=== PATIENT | male | born 1985 | race Caucasian/White ===

== ENCOUNTER 2019-10-24 06:22 | Inpatient (IN) ==
[2019-10-24] MEDS ORDERED: MAGNESIUM HYDROXIDE SUSP 30 ML UDC PO PRN (12:27)
[2019-10-24] MEDS ORDERED: ACETAMINOPHEN 325 MG TAB PO PRN (12:27)
[2019-10-24] MEDS ORDERED: SODIUM CHLORIDE 0.65% NA SOLN 45 ML (OCEAN) PRN (12:27)
[2019-10-24] MEDS ORDERED: ALUMINUM/MAGNESIUM SUSP 30 ML UDC PO PRN (12:27)
[2019-10-24] MEDS ORDERED: BISMUTH SUBSALICYLATE PER ML OMNICELL CHARGE PO PRN (12:27)
[2019-10-24] MEDS ORDERED: clonazePAM 0.5 MG TAB PO PRN (12:27)
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
[2019-10-24] MEDS ORDERED: LEVOTHYROXINE SODIUM 50 MCG TABLET PO SCH (14:00)
[2019-10-24] MEDS ORDERED: Nursing to Pharmacy Communication ONE (14:49)
[2019-10-24] MEDS: LEVOTHYROXINE SODIUM 50 MCG TABLET PO SCH (15:49)
[2019-10-24] MEDS: METFORMIN HCL 500 MG TAB PO SCH (17:39)
[2019-10-24] MEDS: TOPIRAMATE 50 MG TAB PO SCH (20:35)
[2019-10-24] MEDS: TRAZODONE HCL 50 MG TAB PO SCH (20:35)
[2019-10-24] MEDS: ATORVASTATIN 20 MG TAB PO SCH (20:35)
[2019-10-24] MEDS: CHLORPROMAZINE HCL 100 MG TABLET PO SCH (20:35)
[2019-10-24] MEDS: PROPRANOLOL HCL 10 MG TAB PO SCH (20:35)
[2019-10-25] MEDS: LEVOTHYROXINE SODIUM 50 MCG TABLET PO SCH (08:26)
[2019-10-25] MEDS: LEVOTHYROXINE SODIUM 75 MCG TABLET PO SCH (08:47)
[2019-10-25] MEDS: ASPIRIN 325 MG ECTAB PO SCH (08:53)
[2019-10-25] MEDS: PROPRANOLOL HCL 10 MG TAB PO SCH ×2 (08:53→21:36)
[2019-10-25] MEDS: METFORMIN HCL 500 MG TAB PO SCH ×2 (08:53→17:36)
[2019-10-25] MEDS: PALIPERIDONE 3 MG TABCR PO SCH (08:54)
[2019-10-25] MEDS: TOPIRAMATE 50 MG TAB PO SCH ×2 (08:54→21:36)
[2019-10-25] MEDS: SERTRALINE HCL 100 MG TABLET PO SCH (08:54)
--- NOTE | 2019-10-25 09:29 | Psychiatric Progress Note ---
Date of Service October 25, 2019 Impression / Recommendations (1) Schizoaffective disorder, bipolar type: 10/24 -patient presents with depressive symptoms, trigger unclear. He denies recent medication changes. He is a limited historian and would be helpful to expand the database with collateral information from his mother, BCM, and outpatient psychiatrist. -For now continue reported home medications: Paliperidone 3 mg every morning, sertraline 100 mg every morning, chlorpromazine 200 mg at bedtime, and trazodone 50 mg at bedtime. -Try to determine if he has had cholesterol panel and fasting glucose in the past year prior to ordering here. -Continue metformin 1000 mg twice daily with meals; diabetes is not listed on his records, so this may have been added to mitigate antipsychotic-induced weight gain. -Family meeting if indicated. 10/25 - Continue current medication regimen - attempting to coordinate with outpatient psychiatric offices to confirm medications, diagnoses, and recent progress - Will attempt to confirm if patient has a patient case manager, obtain collateral information if available - Pt reporting improvement in mood overall, but does indicate poor sleep last evening - Continue to encourage participation in group and recreational programming (2) Anxiety: 10/24 -continue SSRI, hydroxyzine 25 mg twice daily, and clonazepam 0.5 mg 3 times daily as needed. Per PDMP, he is filling #90 tabs monthly, last prescription filled 09/15/[address] Bandar Hernandez in [place], [place]. (3) Intellectual disability: 10/24 -IQ unknown; coordinate with outpatient BCM tomorrow. (4) Seizure disorder: Continue home dose of topiramate 50 mg twice daily. (5) Hypertension: Continue home dose of propanolol. (6) Hypothyroidism: Continue home dose of levothyroxine. TSH is normal. (7) Hyperlipidemia: Continue home dose of atorvastatin. Clarify when last lipid profile was done. Inventory Assets Strengths: Stable housing, willing for treatment Needs: Increase supports, socialization Risk Factors Assessment Male: Yes : Yes Do You Have Access To A Gun?: No Health Problems: Yes Mental Health Diagnoses: Yes Substance Use Disorders: No Previous Attempt: Yes Previous Psychiatric Hospitalization: Yes Hopelessness: No Smoker: Yes Protective Factors Assessment : No Responsible for Young Children: No Employed: No Stable Relationships: No Supportive Family: Yes Good Rapport with Provider: Yes Interval History Identifying Information MAHAMED HUNTER is a 34-year-old M who currently lives alone in [place], has a history of intellectual disability, 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 Chief Complaint "Um, I'm ok. Pretty stable." Review of Systems Notes Constitutional: reports restless sleep last evening Cardiovascular: denied Respiratory: denied Gastrointestinal: denied Neurological: denied Psychiatric: denies symptoms other than stated above Total of at least 10 systems reviewed, pertinent positives as above and in HPI. Sleep Information Total Hours of Sleep: 6 Meal Information Percent Meal Consumed - Breakfast: 90 Percent Meal Consumed - Lunch: 100 Percent Meal Consumed - Dinner: 95 Subjective Subjective Patient was seen & assessed and interval progress reviewed with treatment team. Staff report the patient was admitted with reports of worsening depression. He did endorse anxiety related to being in the hospital, but reported improvement in condition last evening. Attempts were made by staff to coordinate care with mother, who informed staff that the patient typically has an ED diversion plan. Pt was seen today to assess progress since admission. He was awoken from sleep, but admits he had already been up and eating breakfast earlier this morning. He states that he feels his mood has been "pretty stable" since his admission, and does feel as thought his symptoms have been "getting better." Pt denies overt SI since admission, but endorses ongoing feelings of hopelessness "here and there." He remains a poor historian in that he is not able to recall who is outpatient psychiatric prescriber may be and remains unsure about involvement of a patient case manager. Pt remains agreeable with staff obtaining collateral information as available. He was encouraged to continue to attend group and recreational programming. He denies other needs from staff today. Physical Exam Psychiatric Orientation: alert, oriented x 3 and cooperative Apperance: appropriately dressed, + disheveled (hair unkempt, awoken from sleep) and appeared stated age Eye Contact: good eye contact Motor Behavior: no abnormal motor movements (observed while laying in bed) Speech: normal rate/rhythm/volume of speech Affect: + blunted affect Mood: no depressed mood ("Pretty stable" and "getting better") Thought Process: goal directed thought process, clear/coherent thought process and + concrete thought process Thought Content: reality based without delusions and + hopelessness ("here and there") Suicidal Thoughts: denies suicidal thoughts (denies active SI since admission, but ongoing intermittent hopelessness) and denies suicidal intent Homicidal Thoughts: denies homicidal thoughts Hallucinations: no auditory hallucinations and no visual hallucinations Cognition: attention grossly intact and language grossly intact Estimated Intelligence: + below average estimated intelligence Insight: + limited insight Judgement: + fair judgement Vital Signs (Past 24 Hours) Last Vital Signs Temp 36.6 C 10/25/19 07:01 Pulse 89 10/25/19 07:02 Resp 18 10/25/19 07:01 BP 108/70 10/25/19 07:02 Results & Data Current Inpatient Medications Current Inpatient Medications: Current Inpatient Medications Acetaminophen (Tylenol) 650 mg PO Q4H PRN PRN Reason: Headache or Minor Fever Stop: 11/23/19 12:26 Al Hydrox/Mg Hydrox/Simethicone (Maalox) 30 ml PO Q4H PRN PRN Reason: GI Upset Stop: 11/23/19 12:26 Aspirin (Ecotrin) 325 mg PO DAILY LEE Stop: 11/24/19 08:59 Last Admin: 10/25/19 08:53 Dose: 325 mg Documented by: Atorvastatin Calcium (Lipitor) 20 mg PO HS LEE Stop: 11/23/19 21:59 Last Admin: 10/24/19 20:35 Dose: 20 mg Documented by: Bismuth Subsalicylate (Kaopectate) 15 ml PO PRN PRN PRN Reason: Loose Stool Stop: 11/23/19 12:26 Chlorpromazine HCl (Thorazine) 200 mg PO HS LEE Stop: 11/23/19 21:59 Last Admin: 10/24/19 20:35 Dose: 200 mg Documented by: Clonazepam (Klonopin) 0.5 mg PO TID PRN PRN Reason: Anxiety Stop: 11/23/19 12:26 Hydroxyzine HCl (Vistaril) 50 mg PO HSZ PRN PRN Reason: Insomnia Stop: 11/23/19 12:26 Last Admin: 10/24/19 22:33 Dose: 50 mg Documented by: Hydroxyzine HCl (Vistaril) 25 mg PO Q4H PRN PRN Reason: Anxiety Stop: 02/11/20 12:26 Hydroxyzine HCl (Vistaril) 25 mg PO BID [facility] Stop: 11/23/19 20:59 Last Admin: 10/25/19 08:54 Dose: 25 mg Documented by: Levothyroxine Sodium (Synthroid) 75 mcg PO [id number]@0800 [facility] Stop: 11/24/19 07:59 Last Admin: 10/25/19 08:47 Dose: Not Given Documented by: Levothyroxine Sodium (Synthroid) 50 mcg PO SuMoWeFr@0800 [facility] Stop: 11/23/19 13:59 Last Admin: 10/25/19 08:26 Dose: 50 mcg Documented by: Magnesium Hydroxide (Milk Of Magnesia) 30 ml PO DAILY PRN PRN Reason: Constipation Stop: 11/23/19 12:26 Metformin HCl (Glucophage) 1,000 mg PO BIDM [facility] Stop: 11/23/19 17:44 Last Admin: 10/25/19 08:53 Dose: 1,000 mg Documented by: Paliperidone (Invega) 3 mg PO QAM [facility] Stop: 11/24/19 08:59 Last Admin: 10/25/19 08:54 Dose: 3 mg Documented by: Propranolol HCl (Inderal) 10 mg PO BID [facility] Stop: 11/23/19 20:59 Last Admin: 10/25/19 08:53 Dose: 10 mg Documented by: Sertraline HCl (Zoloft) 100 mg PO DAILY [facility] Stop: 11/24/19 08:59 Last Admin: 10/25/19 08:54 Dose: 100 mg Documented by: Sodium Chloride (Bleckley Nasal) 1 - 2 sprays NA PRN PRN PRN Reason: Nasal Dryness/Congestion Stop: 11/23/19 12:26 Topiramate (Topamax) 50 mg PO BID [facility] Stop: 11/23/19 20:59 Last Admin: 10/25/19 08:54 Dose: 50 mg Documented by: Trazodone HCl (Desyrel) 50 mg PO HS [facility] Stop: 11/23/19 21:59 Last Admin: 10/24/19 20:35 Dose: 50 mg Documented by: Mental Health & Subst Abuse Tx Therapist Name of Therapist: Eliza Klein Head Of Digital Name of Head Of Digital: Quinton Gaines CM at [facility] Post Discharge Appointments Primary Care Physician Name Of Family Doctor: Dr. Gant
[2019-10-25] MEDS: CHLORPROMAZINE HCL 100 MG TABLET PO SCH (21:36)
[2019-10-25] MEDS: ATORVASTATIN 20 MG TAB PO SCH (21:36)
[2019-10-25] MEDS: TRAZODONE HCL 50 MG TAB PO SCH (21:36)
[2019-10-26] MEDS: LEVOTHYROXINE SODIUM 75 MCG TABLET PO SCH (08:42)
[2019-10-26] MEDS: PALIPERIDONE 3 MG TABCR PO SCH (08:43)
[2019-10-26] MEDS: METFORMIN HCL 500 MG TAB PO SCH ×2 (08:43→18:23)
[2019-10-26] MEDS: PROPRANOLOL HCL 10 MG TAB PO SCH ×2 (08:43→21:34)
[2019-10-26] MEDS: ASPIRIN 325 MG ECTAB PO SCH (08:43)
[2019-10-26] MEDS: SERTRALINE HCL 100 MG TABLET PO SCH (08:44)
[2019-10-26] MEDS: TOPIRAMATE 50 MG TAB PO SCH ×2 (08:44→21:35)
--- NOTE | 2019-10-26 11:19 | Psychiatric Progress Note ---
Date of Service October 26, 2019 Impression / Recommendations (1) Schizoaffective disorder, bipolar type: 10/24 -patient presents with depressive symptoms, trigger unclear. He denies recent medication changes. He is a limited historian and would be helpful to expand the database with collateral information from his mother, B[facility], and outpatient psychiatrist. -For now continue reported home medications: Paliperidone 3 mg every morning, sertraline 100 mg every morning, chlorpromazine 200 mg at bedtime, and trazodone 50 mg at bedtime. -Try to determine if he has had cholesterol panel and fasting glucose in the past year prior to ordering here. -Continue metformin 1000 mg twice daily with meals; diabetes is not listed on his records, so this may have been added to mitigate antipsychotic-induced weight gain. -Family meeting if indicated. 10/25 - Continue current medication regimen - attempting to coordinate with outpatient psychiatric offices to confirm medications, diagnoses, and recent progress - Will attempt to confirm if patient has a showcase maker, obtain collateral information if available - Pt reporting improvement in mood overall, but does indicate poor sleep last evening - Continue to encourage participation in group and recreational programming 10/26 - Continue current treatment plan, patient reporting improvement in mood and resolution of SI - Collateral information obtained from director of the [facility]; stating they are meeting with patient several times a week and are available to meet with him on day of discharge - [facility] did indicate patient had fasting blood work completed on 09/08 with no reported concerns - Consider discharge as early as tomorrow - mother notified of plans (2) Anxiety: 10/24 -continue SSRI, hydroxyzine 25 mg twice daily, and clonazepam 0.5 mg 3 times daily as needed. Per PDMP, he is filling #90 tabs monthly, last prescription filled 09/15/[address] Bandar Hernandez in [place], [place]. (3) Intellectual disability: 10/24 -IQ unknown; coordinate with outpatient BCM tomorrow. (4) Seizure disorder: Continue home dose of topiramate 50 mg twice daily. (5) Hypertension: Continue home dose of propanolol. (6) Hypothyroidism: Continue home dose of levothyroxine. TSH is normal. (7) Hyperlipidemia: Continue home dose of atorvastatin. Clarify when last lipid profile was done. Inventory Assets Strengths: Stable housing, willing for treatment Needs: Increase supports, socialization Risk Factors Assessment Male: Yes : Yes Do You Have Access To A Gun?: No Health Problems: Yes Mental Health Diagnoses: Yes Substance Use Disorders: No Previous Attempt: Yes Previous Psychiatric Hospitalization: Yes Hopelessness: No Smoker: Yes Protective Factors Assessment : No Responsible for Young Children: No Employed: No Stable Relationships: No Supportive Family: Yes Good Rapport with Provider: Yes Interval History Identifying Information MAHAMED HUNTER is a 34-year-old M who currently lives alone in [place], has a history of intellectual disability, 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 Chief Complaint "Ok, I'm alright." Review of Systems Notes Constitutional: reports fatigue, but not necessarily poor sleep Cardiovascular: denied Respiratory: denied Gastrointestinal: denied Neurological: denied Psychiatric: denies symptoms other than stated above Total of at least 10 systems reviewed, pertinent positives as above and in HPI. Sleep Information Total Hours of Sleep: 5.75 Meal Information Percent Meal Consumed - Breakfast: 100 Percent Meal Consumed - Lunch: 100 Percent Meal Consumed - Dinner: 100 Subjective Subjective Patient was seen & assessed and interval progress reviewed with nursing and social work. Staff reports the patient continues to demonstrate improvement in mood. He rated his mood an 8/10 and "fine" last evening. He did verbalize to staff that he feels his medications are working. Patient was seen today to assess progress since admission. Patient did provide verbal consent for Allegra Frias PA-C to observe today's encounter. Patient states that he is "okay. I am all right." He does admit to believing that his mood has improved over the course of his hospitalization. Patient rates his present mood a 7/10, and admits that his mood was more a 23/10 at time of admission. Patient does confirm resolution of suicidal ideation, and feels he will better be able to manage his psychiatric symptoms on an outpatient basis at this time. We did review that patient has an ED diversion plan in place, and that this will be reviewed after he is discharged to ensure appropriate use of this plan. Possibility of discharge home tomorrow with mother providing transportation was discussed with the patient. Patient is agreeable with the plan at this time, stating he feels improved and thinks he will be ready to return home. Patient denies other needs or concerns at this time. Physical Exam Psychiatric Orientation: alert, oriented x 3 and + guarded (Superficially cooperative) Apperance: appropriately dressed (Casually, wearing T-shirt and sweatpants) and + disheveled (Hair unkempt, face unshaven) Eye Contact: + fair eye contact Motor Behavior: steady gait and station, no abnormal motor movements and + psychomotor retardation (Slowed movements in response time) Speech: normal rate/rhythm/volume of speech (Monotone, brief responses to questions) Affect: + blunted affect Mood: no depressed mood ("I am all right") and no anxious mood Patient rates his present mood a 7/10, stating mood was a 23/10 at time of presentation. Thought Process: goal directed thought process and + concrete thought process Thought Content: reality based without delusions; no hopelessness and no worthlessness Suicidal Thoughts: denies suicidal thoughts and denies suicidal intent Homicidal Thoughts: denies homicidal thoughts Hallucinations: no auditory hallucinations and no visual hallucinations Cognition: language grossly intact Estimated Intelligence: + below average estimated intelligence Insight: + limited insight (Likely a chronic concern) Judgement: + limited judgement (Likely a chronic concern) Vital Signs (Past 24 Hours) Last Vital Signs Temp 36.4 C L 10/26/19 06:42 Pulse 90 10/26/19 06:43 Resp 18 10/26/19 06:42 BP 100/68 10/26/19 06:43 Results & Data Current Inpatient Medications Current Inpatient Medications: Current Inpatient Medications Acetaminophen (Tylenol) 650 mg PO Q4H PRN PRN Reason: Headache or Minor Fever Stop: 11/23/19 12:26 Al Hydrox/Mg Hydrox/Simethicone (Maalox) 30 ml PO Q4H PRN PRN Reason: GI Upset Stop: 11/23/19 12:26 Aspirin (Ecotrin) 325 mg PO DAILY LEE Stop: 11/24/19 08:59 Last Admin: 10/26/19 08:43 Dose: 325 mg Documented by: Atorvastatin Calcium (Lipitor) 20 mg PO HS LEE Stop: 11/23/19 21:59 Last Admin: 10/25/19 21:36 Dose: 20 mg Documented by: Bismuth Subsalicylate (Kaopectate) 15 ml PO PRN PRN PRN Reason: Loose Stool Stop: 11/23/19 12:26 Chlorpromazine HCl (Thorazine) 200 mg PO HS [facility] Stop: 11/23/19 21:59 Last Admin: 10/25/19 21:36 Dose: 200 mg Documented by: Clonazepam (Klonopin) 0.5 mg PO TID PRN PRN Reason: Anxiety Stop: 11/23/19 12:26 Hydroxyzine HCl (Vistaril) 50 mg PO HSZ PRN PRN Reason: Insomnia Stop: 11/23/19 12:26 Last Admin: 10/24/19 22:33 Dose: 50 mg Documented by: Hydroxyzine HCl (Vistaril) 25 mg PO Q4H PRN PRN Reason: Anxiety Stop: 11/23/19 12:26 Hydroxyzine HCl (Vistaril) 25 mg PO BID [facility] Stop: 11/23/19 20:59 Last Admin: 10/26/19 08:44 Dose: 25 mg Documented by: Levothyroxine Sodium (Synthroid) 75 mcg PO TuThSa@0800 [facility] Stop: 11/24/19 07:59 Last Admin: 10/26/19 08:42 Dose: 75 mcg Documented by: Levothyroxine Sodium (Synthroid) 50 mcg PO SuMoWeFr@0800 [facility] Stop: 11/23/19 13:59 Last Admin: 10/25/19 08:26 Dose: 50 mcg Documented by: Magnesium Hydroxide (Milk Of Magnesia) 30 ml PO DAILY PRN PRN Reason: Constipation Stop: 11/23/19 12:26 Metformin HCl (Glucophage) 1,000 mg PO BIDM [facility] Stop: 11/23/19 17:44 Last Admin: 10/26/19 08:43 Dose: 1,000 mg Documented by: Paliperidone (Invega) 3 mg PO QAM [facility] Stop: 11/24/19 08:59 Last Admin: 10/26/19 08:43 Dose: 3 mg Documented by: Propranolol HCl (Inderal) 10 mg PO BID [facility] Stop: 11/23/19 20:59 Last Admin: 10/26/19 08:43 Dose: 10 mg Documented by: Sertraline HCl (Zoloft) 100 mg PO DAILY [facility] Stop: 11/24/19 08:59 Last Admin: 10/26/19 08:44 Dose: 100 mg Documented by: Sodium Chloride ([place] Nasal) 1 - 2 sprays NA PRN PRN PRN Reason: Nasal Dryness/Congestion Stop: 11/23/19 12:26 Topiramate (Topamax) 50 mg PO BID LEE Stop: 11/23/19 20:59 Last Admin: 10/26/19 08:44 Dose: 50 mg Documented by: Trazodone HCl (Desyrel) 50 mg PO HS LEE Stop: 11/23/19 21:59 Last Admin: 10/25/19 21:36 Dose: 50 mg Documented by: Mental Health & Subst Abuse Tx Psychiatrist Name of Psychiatrist: [facility] - Dr. Hernandez Psychiatrist's Date of Appointment with Psychiatrist: 11/29/19 Psychiatric Appointment Comment: [place] [id number] Therapist Name of Therapist: [facility] Date of Therapist Appointment: 10/27/19 Time of Therapist Appointment: They will contact you and see you once you return home Therapy Appointment Comment: Sees you 3x per week at home Electronic Drafter Name of Electronic Drafter: Ruslan Sevilla Phone Number for Electronic Drafter: [phone] Case Management Appointment Comment: Please follow up as scheduled Post Discharge Appointments Primary Care Physician Name Of Family Doctor: [facility] - Dr. Gant Primary [facility] Time of Appointment with PCP: Please follow up as needed Provider Appointment Comment: [address] [facility], [address] Floor, [place] [address] Contact Information Discharge Discharge Address: [address] [place] [address], [address] [address]
[2019-10-26] MEDS: TRAZODONE HCL 50 MG TAB PO SCH (21:35)
[2019-10-26] MEDS: ATORVASTATIN 20 MG TAB PO SCH (21:36)
[2019-10-26] MEDS: CHLORPROMAZINE HCL 100 MG TABLET PO SCH (21:36)
[2019-10-27] MEDS: LEVOTHYROXINE SODIUM 50 MCG TABLET PO SCH (08:18)
[2019-10-27] MEDS: PROPRANOLOL HCL 10 MG TAB PO SCH (08:18)
[2019-10-27] MEDS: METFORMIN HCL 500 MG TAB PO SCH (08:18)
[2019-10-27] MEDS: ASPIRIN 325 MG ECTAB PO SCH (08:18)
[2019-10-27] MEDS: TOPIRAMATE 50 MG TAB PO SCH (08:19)
[2019-10-27] MEDS: SERTRALINE HCL 100 MG TABLET PO SCH (08:19)
[2019-10-27] MEDS: PALIPERIDONE 3 MG TABCR PO SCH (08:19)
--- NOTE | 2019-10-27 09:17 | Discharge Summary ---
Date of Service October 27, 2019 History of Present Illness Patient was referred from [facility] ER after he presented there with worsening depression and suicidal ideation, and that he did not feel safe returning home. Per the records, he reported feeling more depressed than usual and had suicidal thoughts. He denied recent changes to his medications or psychosocial stressors. He reported poor sleep, self-care, and motivation, stating he did not want to go anywhere or do anything, and had been isolating at home. He reported feeling "stressed out," and said he had not been "mentally right." He was calm and cooperative in the ER, and willing for inpatient treatment. On arrival here, he is noted to be a limited historian, unable to provide basic information, such as the names of his medications. Nursing staff contacted his mother, who expressed anger that he had been hospitalized and refused to provide them with a list of his medications, hanging up on the nurse. On my assessment, he reports he hasn't been "feeling right" for a couple weeks, has been more sad, with decreased energy and motivation. Reports sleep is "fair," and appetite is good. Reports suicidal thoughts have been going on "for a while," states he wants to to be , but has not tried to end his life. He h as access to many medications at home. He doesn't know the names of his medications, and says his mother fills his pillbox. He reports fair adherence, states his mother sometimes reminds him to take his meds. Reports high anxiety, "my nerves are shot," which is daily, denies exacerbating factors. Clonazepam is helpful, takes it "when I need it," prescribed tid. States he doesn't know who prescribes it or how often he takes it. States he "used to be a substance abuser," but hasn't used drugs or alcohol in > 1 year. Denies AVH, paranoia, manic symptoms recently. Struggles to describe a typical day, initially says "stay sober," then says "take a shower, take meds, drink coffee." Drinks about a pot of coffee daily, and sometimes soda as well. States he has no friends which is "a good thing, they were substance abusers." Physical Exam Psychiatric Orientation: alert, oriented x 3 and cooperative Apperance: appropriately dressed, + disheveled (appearing mildly unkempt) and appeared stated age Eye Contact: good eye contact Motor Behavior: steady gait and station and no abnormal motor movements Speech: normal rate/rhythm/volume of speech (brief, but polite responses to questions) Affect: + blunted affect (affect brightening only occasionally) Mood: no depressed mood ("I'm excited" and "I'm feeling pretty good") and no anxious mood Thought Process: goal directed thought process, clear/coherent thought process and + concrete thought process Thought Content: reality based without delusions; no hopelessness and no worthlessness Suicidal Thoughts: denies suicidal thoughts, denies suicidal plan and denies suicidal intent Homicidal Thoughts: denies homicidal thoughts Hallucinations: no auditory hallucinations and no visual hallucinations Cognition: attention grossly intact and language grossly intact Estimated Intelligence: + below average estimated intelligence Insight: + fair insight (likely limited overall, fair insight related to need for ongoing treatment) Judgement: + fair judgement Vital Signs (Past 24 Hours) Last Vital Signs Temp 36.6 C 10/27/19 07:06 Pulse 82 10/27/19 07:07 Resp 18 10/27/19 07:06 BP 104/71 10/27/19 07:07 Principal Diagnosis - Schizoaffective disorder, bipolar type - Anxiety - Intellectual disability - Seizure disorder Psychiatric Data 34-year-old male admitted voluntarily for inpatient psychiatric treatment on 10/24/2019 upon transfer from [facility]. It was reported that patient presented to their facility with worsening depression and suicidal ideation, unable to contract for safety to return home. It is reported that patient was living independently, but has a number of mental health and intellectual disability supports in the area. Patient was accepted in our facility; however, mother expressed concern regarding multiple past psychiatric admissions and frequent medication adjustments. It was felt that patient's symptoms were likely related to various general psychosocial stressors, and therefore medication adjustments were not initiated during his hospitalization. Care was coordinated with patient's outpatient psychiatric providers, who did in form staff that patient generally has an ED diversion plan in place to prevent such admissions. His outpatient supports report ongoing desire to participate in long-term support of the patient. Multiple appointments have been scheduled to allow for timely follow-up after hospital discharge, as well as ongoing support. Over the course of the patient's hospitalization, he participated appropriately in group and recreational programming. He was willing to involve outpatient supports in coordination of care. He verbalized overall improvement in mood and is able to express numerous new coping strategies. He did indicate resolution of suicidal ideation, and is now able to contract for safety outside of the inpatient psychiatric setting. Pt is expressing desire for discharge, and plans have been coordinated with his mother who will be providing transportation. Based on review of patient's case and their current presentation, risk of harm to self or others is no longer perceived to be acute. Management of symptoms on an outpatient basis seems the most appropriate and least restrictive setting. Pt seems appropriate for discharge with recommendation for consistent follow-up with outpatient psychiatric prescriber, therapist, and immigration case worker. Pt verbalized understanding of discharge plan reviewed and is agreeable with plan to be discharged home today. Day of Discharge Assessment Patient's case was reviewed and discussed during treatment team. Patient continues to participate appropriately in group and recreational programming. He is continued to deny concerns related to self-harm thoughts. Discharge planning has been coordinated with his mother, who is planning to pick him up later this morning. Patient was seen today to assess readiness for discharge. Patient states that he is feeling "okay", and is proud of himself as "I've went to all the groups since I have been here." Patient states that overall he has noticed improvement in his mood. He denies ongoing suicidal ideation or any form of self-harm thoughts. When discussing discharge, patient states that he is "excited." Patient is aware that the [facility] program representatives will be meeting with him later today to review his ED diversion plan and other safety planning resources. Patient is able to verbalize aspects of his safety plan, including warning signs, coping strategies, and supports he feels comfortable reaching out to. Patient does indicate an understanding of crisis resources in his area, and is able to verbalize willingness to use these resources if necessary. Patient is future oriented in conversation, talking about his desire to return home and play video games. Patient is also excited to spend some time with his peers specialist after discharge. Discharge plan was reviewed with the patient, who verbalized understanding and is agreeable with returning home today with transportation being provided by his mother. He denies any other questions or concerns prior to returning home later this morning. ROS: Constitutional: denied Cardiovascular: denied Respiratory: denied Gastrointestinal: denied Neurological: denied Psychiatric: denies symptoms other than stated above Total of at least 10 systems reviewed, pertinent positives as above and in HPI. Transition of Care Transition Of Care Record: was reviewed with the patient Advance Directives Advance Directives Information Provided: Yes Advance Directives: No Mental Health Advance Directive: No Advance Directives on File: No Living Will: No Power of Milk Delivery Driver: No Advance Directives Reason:: Declines as Mental Health Visit. Risk Factors Assessment Presenting risk factors reviewed on discharge. Precipitating stressors mitigated by: admission for inpatient psychiatric observation and treatment, attendance of therapeutic treatment groups, development of healthy and effective coping strategies, involvement of outpatient supports, completion of a safety plan, treatment of medical conditions and education on diagnoses. Pt has demonstrated improvement in condition with regard to improvement in mood, resolution of SI, involvement of outpatient supports in aftercare and safety planning. At this time, patient is requesting discharge and is no longer considered to be at acute risk of harm to himself or others. Pt will be discharged with recommendation for ongoing outpatient psychiatric treatment. Male: Yes : Yes Do You Have Access To A Gun?: No Health Problems: Yes Mental Health Diagnoses: Yes Substance Use Disorders: No Previous Attempt: Yes Previous Psychiatric Hospitalization: Yes Hopelessness: No Smoker: Yes Protective Factors Assessment : No Responsible for Young Children: No Employed: No Stable Relationships: No Supportive Family: Yes Good Rapport with Provider: Yes Tobacco Cessation at Discharge Tobacco Cessation Medication Prescribed at Discharge: Not Applicable/Non-Smoker Antipsychotic Medications Maintained on home doses of chlorpromazine and paliperidone as symptoms have achieved general stability with this combination of medications. History available suggests patient has likely failed at least 3 trials of monotherapy before initiating this combination of medications which have allowed for stability of mood and psychotic symptoms. Total Time Total Time Spent: Greater Than 30 Minutes Total Time Includes: Examination of the patient, Discharge Planning, Medication Reconciliation and Communication with other providers Hospital Course (1) Schizoaffective disorder, bipolar type: 10/24 -patient presents with depressive symptoms, trigger unclear. He denies recent medication changes. He is a limited historian and would be helpful to expand the database with collateral information from his mother, BCM, and outpatient psychiatrist. -For now continue reported home medications: Paliperidone 3 mg every morning, sertraline 100 mg every morning, chlorpromazine 200 mg at bedtime, and trazodone 50 mg at bedtime. -Try to determine if he has had cholesterol panel and fasting glucose in the past year prior to ordering here. -Continue metformin 1000 mg twice daily with meals; diabetes is not listed on his records, so this may have been added to mitigate antipsychotic-induced weight gain. -Family meeting if indicated. 10/25 - Continue current medication regimen - attempting to coordinate with outpatient psychiatric offices to confirm medications, diagnoses, and recent progress - Will attempt to confirm if patient has a immigration case worker, obtain collateral information if available - Pt reporting improvement in mood overall, but does indicate poor sleep last evening - Continue to encourage participation in group and recreational programming 10/26 - Continue current treatment plan, patient reporting improvement in mood and resolution of SI - Collateral information obtained from director of the [facility]; stating they are meeting with patient several times a week and are available to meet with him on day of discharge - [facility] did indicate patient had fasting blood work completed on 09/08 with no reported concerns - Consider discharge as early as tomorrow - mother notified of plans (2) Anxiety: 10/24 -continue SSRI, hydroxyzine 25 mg twice daily, and clonazepam 0.5 mg 3 times daily as needed. Per PDMP, he is filling #90 tabs monthly, last prescription filled 09/15/[address] Bandar Hernandez in [place]. (3) Intellectual disability: 10/24 -IQ unknown; coordinate with outpatient BCM tomorrow. (4) Seizure disorder: Continue home dose of topiramate 50 mg twice daily. (5) Hypertension: Continue home dose of propanolol. (6) Hypothyroidism: Continue home dose of levothyroxine. TSH is normal. (7) Hyperlipidemia: Continue home dose of atorvastatin. Clarify when last lipid profile was done. Mental Health & Subst Abuse Tx Psychiatrist Name of Psychiatrist: [facility] - Dr. Hernandez Psychiatrist's Date of Appointment with Psychiatrist: 11/29/19 Psychiatric Appointment Comment: [place] [id number] Therapist Name of Therapist: [facility] Date of Therapist Appointment: 10/27/19 Time of Therapist Appointment: They will contact you and see you once you return home Therapy Appointment Comment: Sees you 3x per week at home Meat Counter Worker Name of Meat Counter Worker: Ruslan Sevilla Phone Number for Meat Counter Worker: [phone] Case Management Appointment Comment: Please follow up as scheduled Post Discharge Appointments Primary Care Physician Name Of Family Doctor: [facility] - Dr. Gant Primary Care Time of Appointment with PCP: Please follow up as needed Provider Appointment Comment: [address], [address], [place] [address] Smoking Cessation Counseling Tobacco Cessation Medication Prescribed at Discharge: Not Applicable/Non-Smoker Contact Information Discharge Discharge Address: [address] [place] [address], [address] [address] Discharge Plan Discharge Items Patient Disposition: Home - Self-Care Reason For Visit: SCHIZOAFFECTIVE DISORDER Discharge Diagnosis: - Schizoaffective disorder - Anxiety Activity: Resume your previous activity Non-emergency contact: Primary Care Provider, Psychiatrist, Therapist and Climatology Teacher Call non-emergency contact if: you have any medication questions and your symptoms worsen Follow-up/Referrals: Dominick Gant DO [Primary Care Provider] - Diet: Regular Addtl Attending Provider Instructions: SPECIAL CARE INSTRUCTIONS: 1. Follow through with your scheduled aftercare appointments. If unable to keep an appointment, please call to reschedule. 2. Take your medication only as prescribed. Medication should not be changed or stopped without the approval of your doctor. In the event of worsening symptoms or concerns about side effects, contact your doctor immediately. 3. Utilize new healthy coping skills, anger management skills, and stress management skills learned during your hospitalization. Journal feelings and process them with a support person. Identify stressors or situations that may result in relapse, deterioration or inappropriate behaviors and develop a plan to deal with those issues. 4. If your coping skills are ineffective and you are in crisis, contact your outpatient providers for direction. If unable to reach your providers, please call the CAN HELP LINE AT or go to the closest Emergency Room. 5. Avoid alcohol and un-prescribed drugs. 6. You have been provided with the Mental Health Advance Directives Pamphlet for your review. AFTERCARE APPOINTMENTS: * Please call your insurance company prior to your scheduled appointment to confirm your aftercare providers are covered. Take your insurance information to your appointments. WHO TO CALL AND WHEN: Medical Emergencies: For questions or emergencies related to your hospital stay, please contact the Inpatient Behavioral Health Unit at [phone]. A can striper is on-call 05/05 for the Behavioral Health Unit for emergencies At any time you feel your situation is an emergency, you may also call 911 immediately. Your Discharge Instructions noted above were prepared by provider Patricia Billings PA-C. Pending Studies at Discharge: No Stand-Alone Forms: My [facility], Smoking Cessation Medications and DC Order Prescriptions: Continued levothyroxine [Synthroid] 75 mcg tablet See Rx Instructions .ROUTE .COMPLEX RF: 0 atorvastatin [Lipitor] 20 mg tablet 20 mg PO HS RF: 0 chlorpromazine 200 mg tablet 200 mg PO HS RF: 0 paliperidone [Invega] 3 mg Tablet Extended Release 24hr 3 mg PO QAM RF: 0 topiramate [Topamax] 25 mg tablet 50 mg PO BID RF: 0 metformin [Glucophage] 1,000 mg tablet 1,000 mg PO BIDM RF: 0 aspirin [Shakila Aspirin] 325 mg tablet 325 mg PO DAILY RF: 0 clonazepam [Klonopin] 0.5 mg tablet 0.5 mg PO TID PRN (Reason: Anxiety) RF: 0 sertraline [Zoloft] 100 mg tablet 100 mg PO DAILY RF: 0 hydroxyzine pamoate [Vistaril] 25 mg capsule 25 mg PO BID RF: 0 propranolol 10 mg tablet 10 mg PO BID RF: 0 trazodone 50 mg tablet 50 mg PO HS RF: 0 levothyroxine [Synthroid] 50 mcg Tablet See Rx Instructions .ROUTE .COMPLEX RF: 0 Discharge Orders: Discharge Order (Routine); Ordered 10/27/19 Ordered By: Patricia Billings Admission Data Admit Date/Time: 10/24/19 09:06 Attending Provider: Haleigh Grace Admit Provider: Haleigh Grace Primary Care Provider: Dominick Gant Other Interventions: Discharge Summary Assessment (RN) Last Done: 10/27/19 09:28 PSY Interdisciplinary Discharge Planning Last Done: 10/27/19 09:25 Coding Level of Care Code 74881 D/C day mgmt > 30 min Diagnoses Schizoaffective disorder, bipolar type F25.0 Anxiety F41.9 Intellectual disability F79 Seizure disorder G40.909 Hypertension I10 Hypothyroidism E03.9 Hyperlipidemia E78.5
== END 2019-10-27 11:40 | disposition home or self-care (01) | DRG 885 ==
LOC: 3S 09:06